=== PATIENT | male | born 1950 | race African-American/Black ===

== ENCOUNTER 2024-02-27 16:00 | Outpatient (CLI) | payer MEDICARE | END 2024-02-27 16:01 | disposition home or self-care (01) | LOC: SLEEPLAB 16:00 | PROVIDERS: ATTEND Family Medicine | DX: G47.33 Obstructive sleep apnea (adult) (pediatric) (principal); G47.10 Hypersomnia, unspecified; I10 Essential (primary) hypertension; F32.A Depression, unspecified; R53.83 Other fatigue | CPT/HCPCS: 95800 ==